=== PATIENT | male | born 1985 | race Caucasian/White ===

== ENCOUNTER 2022-07-15 02:39 | Emergency (ER) | payer OTHER ==
[2022-07-15 03:22] LABS: HCT 43.5 % (42.0-52.0); HGB 15.1 g/dl (13.2-18.0); MCH 29.8 pg (25.0-31.0); MCHC 34.7 g/dL (32.0-36.0); MCV 85.8 fL (78.0-100.0); RBC 5.07 M/uL (4.70-6.00); RDW 12.2 % (11.5-14.0); WBC 6.8 K/uL (4.0-10.5)
[2022-07-15 03:37] LABS: BUN/CREAT RATIO (CALC) 23.6 RATIO; CREATININE 0.89 mg/dL (0.67-1.17); POTASSIUM 3.8 mmol/L (3.5-5.1)
[2022-07-15] MEDS ORDERED: ATARAX25 MG PO (03:52)
== END 2022-07-15 04:30 | disposition home or self-care (01) ==
LOC: FER 02:39
PROVIDERS: Emergency Medicine
DX: F41.0 Panic disorder [episodic paroxysmal anxiety] (principal)
CPT/HCPCS: 36415; 80048; 84484; 93005